=== PATIENT | male | born 1970 | race Caucasian/White ===

== ENCOUNTER 2017-07-17 01:49 | Emergency (ER) | payer BC ==
[2017-07-17] MEDS ORDERED: MORPHINE SULFATE 4 MG INJ IV ONE ×3 (02:05→05:46)
[2017-07-17] MEDS ORDERED: Zofran 4 MG/2 ML VIAL IV ONE (02:05)
--- NOTE | 2017-07-17 02:14 | ERPHSYRPT ---
- History of Present Illness Time Seen by Provider: 07/17/17 02:09 Source: patient Exam Limitations: no limitations Patient Subjective Stated Complaint: Pt reports pain in legs bilat with swelling left leg for several days. Reports that has an appt with PCP in next few days but pain has gotten unbearable. Pt reports that he has a hx of brain tumors with recent brain surgery and radiatiory therapy. Triage Nursing Assessment: Pt alert, oriented, answers questions appropriately. Pt skin flushed, warm, dry. Resps non-labored. Edema noted left lower leg. 2+ pedal pulses bilat. Pt yelling out in pain, moaning, thrashing head. Physician History: 47-year-old white male arrives with complaint of severe pain in bilateral lower extremities from the Knees down symptoms since tonight approximately one hour( patient tells the nurse for several days) Also with lower extremity edema on the left symptoms for several weeks. Patient has not otherwise been ill. Past medical history includes brain tumor with brain surgery and radiation. Patient states brain surgery 2012 states had surgery 2 weeks ago. Also history of diabetes mellitus. Cyst removed right elbow. Anemia. DVT left upper extremity. Method of Injury: other (no injury) Occurred: other (patient states pain for one hour sudden onset, ( patient tells the nurse for several days) patient with left lower extremity edema for several weeks) Quality: constant, aching Severity of Pain-Max: moderate Severity of Pain-Current: moderate Lower Extremities Pain: leg: bilateral Modifying Factors: Improves With: nothing Associated Symptoms: none, other (left lower extremity edema) Allergies/Adverse Reactions: No Known Drug Allergies Allergy (Unverified 05/22/13 11:16) Home Medications: Ibuprofen 800 mg PO TID 07/17/17 [History] Insulin Glargine,Hum.rec.anlog [Lantus] 34 unit SQ BID 07/17/17 [History] Levetiracetam [Keppra] 1,000 mg PO BID 07/17/17 [History] Metformin HCl 500 mg [Glucophage 500 MG] 500 mg PO BID 07/17/17 [History] Omeprazole Magnesium [Prilosec Otc] 20 mg PO DAILY 07/17/17 [History] Hx Tetanus, Diphtheria Vaccination/Date Given: No Hx Influenza Vaccination/Date Given: No Hx Pneumococcal Vaccination/Date Given: No Immunizations Up to Date: Yes - Review of Systems Constitutional: No Fever, No Chills Eyes: No Symptoms Ears, Nose, & Throat: No Symptoms Respiratory: No Cough, No Dyspnea Cardiac: No Chest Pain, No Edema, No Syncope Abdominal/Gastrointestinal: No Abdominal Pain, No Nausea, No Vomiting, No Diarrhea Genitourinary Symptoms: No Dysuria Musculoskeletal: Other (bilateral leg painswelling left lower extremity) Skin: No Rash Neurological: Other (patient states having the pain in his lower legs) Psychological: No Symptoms Endocrine: No Symptoms All Other Systems: Reviewed and Negative - Past Medical History Pertinent Past Medical History: Yes Neurological History: No Pertinent History, Seizures, Other ENT History: No Pertinent History Cardiac History: Hypertension Respiratory History: No Pertinent History Endocrine Medical History: No Pertinent History Musculoskeletal History: No Pertinent History GI Medical History: GERD History: No Pertinent History Psycho-Social History: No Pertinent History Male Reproductive Disorders: No Pertinent History Other Medical History: brain tumor removed in may 2013 radiation jun 2017 - Past Surgical History Past Surgical History: Yes Neuro Surgical History: Neurological Surgery Cardiac: No Pertinent History Respiratory: No Pertinent History Gastrointestinal: No Pertinent History Genitourinary: No Pertinent History Musculoskeletal: No Pertinent History Male Surgical History: No Pertinent History Other Surgical History: CYST REMOVED ON ELBOW - Social History Smoking Status: Current every day smoker Exposure to second hand smoke: No Drug Use: none Patient Lives Alone: No - Nursing Vital Signs Nursing Vital Signs: Initial Vital Signs Temperature 98.2 F 07/17/17 01:57 Pulse Rate 84 07/17/17 01:57 Respiratory Rate 16 07/17/17 01:57 Blood Pressure 159/111 07/17/17 01:57 O2 Sat by Pulse Oximetry 97 07/17/17 01:57 Pain Scale Pain Intensity 3 - Physical Exam General Appearance: moderate distress Eyes, Ears, Nose, Throat Exam: moist mucous membranes Neck Exam: non-tender, supple Cardiovascular/Respiratory Exam: chest non-tender, normal breath sounds, regular rate/rhythm, no respiratory distress Gastrointestinal/Abdominal Exam: non-tender, guarding Back Exam: normal inspection, No vertebral tenderness Hips Exam: bilateral: non-tender, normal inspection, normal range of motion, no evidence of injury Legs Exam: left leg: swelling (edema left ankle leg and foot), bilateral leg: non-tender, normal range of motion Knees Exam: bilateral knee: non-tender, normal inspection, normal range of motion, no evidence of injury Ankle Exam: left ankle: swelling (edema left ankle leg and foot), bilateral ankle: non-tender, normal inspection, normal range of motion, no evidence of injury Foot Exam: left foot: swelling (edema left ankle leg and foot), bilateral foot: non-tender, normal inspection, normal range of motion, no evidence of injury, abrasions/lacerations DTR - Lower Extremities Exam: ankle (R): 2+, ankle (L): 2+ Neuro/Tendon Exam: normal sensation, normal motor functions Mental Status Exam: alert, oriented x 3, cooperative Skin Exam: normal color, warm, dry SpO2 Interpretation: normal (97%) SpO2: 97 Oxygen Delivery: Room Air - Radiology Ultrasound Exam Venous Lower Extremity Ultrasound: Other (venous Doppler bilateral lower extremities: Positive DVT from left common femoral vein to posterior tibial vein. No DVT right leg) Ordered Tests: Active Orders 24 hr Category Date Time Status IV Insertion STAT Care 07/17/17 02:05 Active VENOUS BILATERAL EXTREMITY [US] Stat Exams 07/17/17 Taken CBC W DIFF Stat Lab 07/17/17 02:20 Completed CMP Stat Lab 07/17/17 02:20 Completed D-DIMER QUANTITATION Stat Lab 07/17/17 02:20 Completed Manual Differential NC Stat Lab 07/17/17 02:20 Completed PROTIME WITH INR Stat Lab 07/17/17 02:20 Completed PTT Stat Lab 07/17/17 02:20 Completed Urine Triage Profile Stat Lab 07/17/17 02:20 Completed Oxygen NASAL CANNULA 3 lpm RT 07/17/17 06:26 Active Medication Summary Generic Name Dose Route Start Last Admin Trade Name Freq PRN Reason Stop Dose Admin Sodium Chloride 1,000 mls @ 100 mls/hr 07/17/17 02:15 07/17/17 02:16 Sodium Chloride 0.9% 1000 Ml IV 08/16/17 02:14 100 mls/hr .Q10H CHRISTIN Administration Discontinued Medications Generic Name Dose Route Start Last Admin Trade Name Freq PRN Reason Stop Dose Admin Enoxaparin Sodium 90 mg 07/17/17 04:29 07/17/17 05:41 Enoxaparin Sodium 1 mg/kg (90 mg) 07/17/17 04:30 90 mg SQ Administration 1XONLY STA Enoxaparin Sodium Confirm 07/17/17 05:40 Enoxaparin Sodium Administered 07/17/17 05:41 Dose 120 mg SQ .STK-MED ONE Morphine Sulfate 4 mg 07/17/17 02:05 07/17/17 02:17 Morphine Sulfate 4 Mg Inj IV 07/17/17 02:06 4 mg STAT ONE Administration Morphine Sulfate Confirm 07/17/17 02:15 Morphine Sulfate 4 Mg Inj Administered 07/17/17 02:16 Dose 4 mg .ROUTE .STK-MED ONE Morphine Sulfate 4 mg 07/17/17 03:23 07/17/17 03:27 Morphine Sulfate 4 Mg Inj IV 07/17/17 03:24 4 mg STAT ONE Administration Morphine Sulfate Confirm 07/17/17 03:26 Morphine Sulfate 4 Mg Inj Administered 07/17/17 03:27 Dose 4 mg .ROUTE .STK-MED ONE Morphine Sulfate Confirm 07/17/17 05:46 Morphine Sulfate 4 Mg Inj Administered 07/17/17 05:47 Dose 4 mg .ROUTE .STK-MED ONE Morphine Sulfate 4 mg 07/17/17 05:46 07/17/17 05:49 Morphine Sulfate 4 Mg Inj IV 07/17/17 05:47 4 mg STAT ONE Administration Ondansetron HCl 4 mg 07/17/17 02:05 07/17/17 02:16 Zofran 4 Mg/2 Ml Vial IV 07/17/17 02:06 4 mg STAT ONE Administration Ondansetron HCl Confirm 07/17/17 02:15 Zofran 4 Mg/2 Ml Vial Administered 07/17/17 02:16 Dose 4 mg .ROUTE .STK-MED ONE Lab/Rad Data: Laboratory Result Diagrams 07/17/17 02:20 07/17/17 02:20 Laboratory Results 07/17/17 07/17/17 07/17/17 Range/Units 02:20 02:20 02:20 WBC (4.0-10.5) K/mm3 RBC (4.1-5.6) M/mm3 Hgb (12.5-18.0) gm/dl Hct (42-50) % MCV (78-100) fl MCH (26-32) pg MCHC (32-36) g/dl RDW (11.5-14.0) % Plt Count (150-450) K/mm3 MPV (6-9.5) fl Segmented Neutrophils (36.-66.) % Band Neutrophils (0.0-2.0) % Lymphocytes (Manual) (24-44) % Monocytes (Manual) (0.0-12.0) % Eosinophils (Manual) (0.00-3.0) % Differential Comment Platelet Estimate (NORMAL) INR 0.88 (0.8-3.0) APTT 25.2 (24.1-36.1) SECONDS D-Dimer 96255 H* (0-500) ng/mL Sodium (136-145) mEq/L Potassium (3.5-5.1) mEq/L Chloride (98-107) mEq/L Carbon Dioxide (21-32) mEq/L Anion Gap (5-15) MEQ/L BUN (9-20) mg/dL Creatinine (0.55-1.30) mg/dl Estimated GFR ML/MIN Glucose (70-110) MG/DL Calcium (8.5-10.1) mg/dL Total Bilirubin (0.2-1.0) mg/dL AST (15-37) U/L ALT (12-78) U/L Alkaline Phosphatase (46-116) U/L Serum Total Protein (6.4-8.2) gm/dL Albumin (3.4-5.0) g/dL Urine Opiates Level NEG. (NEGATIVE) Ur Methadone NEG. (NEGATIVE) Urine Barbiturates NEG. (NEGATIVE) Ur Phencyclidine (PCP) NEG. (NEGATIVE) Urine Amphetamine NEG. (NEGATIVE) U Benzodiazepine Level NEG. (NEGATIVE) Urine Cocaine NEG. (NEGATIVE) Urine Marijuana (THC) NEG. (NEGATIVE) 07/17/17 07/17/17 Range/Units 02:20 02:20 WBC 8.1 (4.0-10.5) K/mm3 RBC 4.13 (4.1-5.6) M/mm3 Hgb 12.9 (12.5-18.0) gm/dl Hct 40.2 L (42-50) % MCV 97.3 (78-100) fl MCH 31.2 (26-32) pg MCHC 32.1 (32-36) g/dl RDW 15.8 H (11.5-14.0) % Plt Count 114 L (150-450) K/mm3 MPV 8.5 (6-9.5) fl Segmented Neutrophils 70 H (36.-66.) % Band Neutrophils 1 (0.0-2.0) % Lymphocytes (Manual) 25 (24-44) % Monocytes (Manual) 3 (0.0-12.0) % Eosinophils (Manual) 1 (0.00-3.0) % Differential Comment NORMAL Platelet Estimate DECREASED (NORMAL) INR (0.8-3.0) APTT (24.1-36.1) SECONDS D-Dimer (0-500) ng/mL Sodium 144 (136-145) mEq/L Potassium 4.1 (3.5-5.1) mEq/L Chloride 110 H (98-107) mEq/L Carbon Dioxide 30.9 (21-32) mEq/L Anion Gap 6.8 (5-15) MEQ/L BUN 15 (9-20) mg/dL Creatinine 0.85 (0.55-1.30) mg/dl Estimated GFR > 60 ML/MIN Glucose 82 (70-110) MG/DL Calcium 8.5 (8.5-10.1) mg/dL Total Bilirubin 0.30 (0.2-1.0) mg/dL AST 19 (15-37) U/L ALT 43 (12-78) U/L Alkaline Phosphatase 54 (46-116) U/L Serum Total Protein 6.0 L (6.4-8.2) gm/dL Albumin 2.9 L (3.4-5.0) g/dL Urine Opiates Level (NEGATIVE) Ur Methadone (NEGATIVE) Urine Barbiturates (NEGATIVE) Ur Phencyclidine (PCP) (NEGATIVE) Urine Amphetamine (NEGATIVE) U Benzodiazepine Level (NEGATIVE) Urine Cocaine (NEGATIVE) Urine Marijuana (THC) (NEGATIVE) - Progress Progress: improved Progress Note: 07/17/17 02:19 This is a 47-year-old white male who states he has a history of a brain tumor and has had a surgery in 2012 with removal and subsequent surgery April 2017 he states he has had radiation which she has recently finished his last dose He complains of bilateral lower extremity pain he calls this nerve pain. He states his been severe since tonight he has been having lower extremity edema especially on the left symptoms for several weeks. Patient does have a well-healed scar on his head. Patient I have reviewed the patient's inspect report that shows that he received hydrocodone 7.5/325 #90 May 18, 2017 hydrocodone 7. 5/3/25 #28 May 08, 2017 oxycodone and acetaminophen 10/325 #84 on April 26, 2017 And hydrocodone 7.5/325 #28 on April 10 Patient states these are related to pain from his surgery He states he had his surgery in [place] Will go ahead and obtain CBC BMP d-dimer order venous Doppler bilateral lower extremities. Patient is given morphine and Zofran for pain. 07/17/17 04:23 Patient with a DVT extending from the left common femoral to the posterior tibial on the left leg, there are no DVTs in the right leg Patient was given morphine and IV normal saline. I contacted the hospitalist at [facility] randallia she stated that she did not feel comfortable accepting this patient she states that he had a very complex course and had actually had some seizures after his surgery while at [facility] she recommended I contact Wilfr[facility]. I initially contacted Dr. Meyer hospitalist at [facility] He recommended that the patient be discussed with Dr. Morgan neurosurgeon at [facility]. Dr. Arellano was contacted by one call he approved patient receiving Lovenox here at [facility] and they would arrange for a bed at [facility] on the PCU. Patient appears to be stable at this time vitals have been stable patient is markedly improved as far as comfort. Will order Lovenox and await bed at [facility] - Departure Time of Disposition: 06:56 Departure Disposition: Transfer ([facility] Dr Meyer) Clinical Impression: Bilateral leg pain, history of recent brain surgery, History of brain tumor, history of recent radiation therapy Left leg DVT Qualifiers: Affected thrombotic vein of extremity: unspecified vein of extremity Chronicity : acute Qualified Code(s): I82.402 - Acute embolism and thrombosis of unspecified deep veins of left lower extremity Condition: Fair Critical Care Time: No Referrals: MEGHAN PATEL [Primary Care Provider] -
[2017-07-17] MEDS ORDERED: Sodium Chloride 0.9% 1000 ML 1,000 ML IV SCH (02:15)
[2017-07-17] MEDS ORDERED: Zofran 4 MG/2 ML VIAL ONE (02:15)
[2017-07-17] MEDS ORDERED: Sodium Chloride 0.9% 1000 ML 1,000 ML ONE (02:15)
[2017-07-17] MEDS ORDERED: MORPHINE SULFATE 4 MG INJ ONE ×3 (02:15→05:46)
[2017-07-17 02:24] LABS: Mean Cell Volume 97.3 fl (78-100); Mean Corpuscular Hemoglobin 31.2 pg (26-32); Mean Platelet Volume 8.5 fl (6-9.5); Platelet Count 114 K/mm3 (150-450); Red Blood Count 4.13 M/mm3 (4.1-5.6); Red Cell Distribution Width 15.8 % (11.5-14.0); White Blood Count 8.1 K/mm3 (4.0-10.5)
[2017-07-17 02:44] LABS: ALBUMIN 2.9 g/dL (3.4-5.0); ALKALINE PHOSPHATASE 54 U/L (46-116); ANION GAP 6.8 MEQ/L (5-15); BLOOD UREA NITROGEN 15 mg/dL (9-20); CHLORIDE 110 mEq/L (98-107); Carbon Dioxide 30.9 mEq/L (21-32); Glucose 82 MG/DL (70-110); Potassium 4.1 mEq/L (3.5-5.1); SGOT/AST 19 U/L (15-37); SGPT/ALT 43 U/L (12-78); SODIUM 144 mEq/L (136-145)
[2017-07-17 03:40] LABS: INR 0.88 (0.8-3.0); PROTIME 9.8 SECONDS (8.83-12.87)
[2017-07-17 03:41] LABS: PTT 25.2 SECONDS (24.1-36.1)
[2017-07-17 04:18] LABS: BAND 1 % (0.0-2.0); Eosinophil 1 % (0.00-3.0); Total Cells Counted 100
[2017-07-17 04:19] LABS: Platelet Estimate DECREASED (NORMAL)
[2017-07-17] MEDS ORDERED: ENOXAPARIN SODIUM SQ STA (04:29)
[2017-07-17] MEDS ORDERED: ENOXAPARIN SODIUM SQ ONE (05:40)
[2017-07-17 06:56] VITALS: O2SAT 97
[2017-07-17 06:58] VITALS: BP 150/77; PULSE 76
--- NOTE | 2017-07-17 08:53 | XRAY ---
Indication: Bilateral leg pain. Two-dimensional sonogram and color Doppler imaging of the major venous vessels of the left and right leg was performed. Comparison: None Left leg demonstrates occluding thrombus throughout the superficial femoral, popliteal, and posterior tibial veins. No thrombus in the common femoral or greater saphenous veins. There is no thrombus seen in the examined deep venous vessels of the right leg including greater saphenous vein. Veins demonstrate normal compressibility. Venous waveforms are normal with and without augmentation. Impression: 1. Extensive left leg occluding DVT. 2. Right leg negative for DVT. Comment: Preliminary report was given.
== END 2017-07-17 08:37 | disposition short-term general hospital (02) ==
LOC: ED 01:49
DX: I82.402 Acute embolism and thrombosis of unspecified deep veins of left lower extremity (principal); M79.605 Pain in left leg; M79.604 Pain in right leg; Z92.3 Personal history of irradiation
CPT/HCPCS: 36000; 36415; 80053; 80307; 85025; 85379; 85610; 85730; 93970; 96360; 96361; 96372; 96374; 96375; 96376; 99285; J1650; J2270; J2405

== ENCOUNTER 2017-12-13 20:12 | Emergency (ER) | payer OTHER ==
--- NOTE | 2017-12-13 21:09 | ERPHSYRPT ---
- History of Present Illness Time Seen by Provider: 12/13/17 20:24 Source: patient Exam Limitations: no limitations Patient Subjective Stated Complaint: Hypertension, "I don't feel right" and left arm tingling. Triage Nursing Assessment: Pt presents to the ED with complaints of hypertension , onset today when he woke up. Pt states he woke up "not feeling well" and thought his FSBS was low, but states his FSBS has been fine today. Pt states he was evaluated by EMS and told his BP was 163/103. No distress noted. No chest pain noted. Skin PWD. Physician History: 47 y/o male with history of brain tumor, HTN, DVT and DM comes to the ER with complaints of left hand tingling and pulsation of his head that started 1 hour prior to arrival. This morning, patient woke up with a headache but drank coffee and the pain went away. Pt states that his BP was elevated prior to arrival but in the ER BP was 157/95. Pt had a tumor removed in June and had RT in July. Pt denies any fever, chills, chest pain, shortness of breath, palpitations, blurry vision or headache. Timing/Duration: today Activities at Onset: none Quality: throbbing Modifying Factors: Improves With: nothing Nitro Today/Relief: no nitro taken today Aspirin Treatment Today: no aspirin today Associated Symptoms: denies symptoms Prior Chest Pain/Cardiac Workup: no prior chest pain Allergies/Adverse Reactions: No Known Drug Allergies Allergy (Verified 12/13/17 20:33) Home Medications: Ibuprofen 800 mg PO TID 07/17/17 [History] Insulin Glargine,Hum.rec.anlog [Lantus] 34 unit SQ BID 07/17/17 [History] Levetiracetam [Keppra] 1,000 mg PO BID 07/17/17 [History] Metformin HCl 500 mg [Glucophage 500 MG] 500 mg PO BID 07/17/17 [History] Apixaban [Eliquis 5 mg Tablet] 5 mg PO DAILY 12/13/17 [History] Dexamethasone 4 mg [Decadron 4 MG] 4 mg PO BID 12/13/17 [History] Hydrochlorothiazide 25 mg [hydroDIURIL 25 MG] 25 mg PO DAILY 12/13/17 [ History] Multivitamin [Multivitamins] 1 each PO DAILY 12/13/17 [History] Potassium Chloride 10 Meq Tab* [Klor Con 10 MEQ] 10 meq PO DAILY 12/13/17 [ History] Pravastatin Sodium 20 mg PO DAILY 12/13/17 [History] Hx Tetanus, Diphtheria Vaccination/Date Given: Yes Hx Influenza Vaccination/Date Given: Yes Hx Pneumococcal Vaccination/Date Given: No Immunizations Up to Date: Yes - Review of Systems Constitutional: No Fever, No Chills Eyes: No Symptoms Ears, Nose, & Throat: No Symptoms Respiratory: No Cough, No Dyspnea Cardiac: Other (numbness), No Chest Pain, No Edema, No Syncope Abdominal/Gastrointestinal: No Abdominal Pain, No Nausea, No Vomiting, No Diarrhea Genitourinary Symptoms: No Dysuria Musculoskeletal: No Back Pain, No Neck Pain Skin: No Rash Neurological: Parasthesia, No Dizziness, No Focal Weakness, No Headache, No Sensory Changes Psychological: No Symptoms Endocrine: No Symptoms All Other Systems: Reviewed and Negative - Past Medical History Pertinent Past Medical History: Yes Neurological History: No Pertinent History, Seizures, Other ENT History: No Pertinent History Cardiac History: Hypertension Respiratory History: No Pertinent History Endocrine Medical History: No Pertinent History Musculoskeletal History: No Pertinent History GI Medical History: GERD History: No Pertinent History Psycho-Social History: No Pertinent History Male Reproductive Disorders: No Pertinent History Other Medical History: brain tumor removed in may 2013 radiation jun 2017 - Past Surgical History Past Surgical History: Yes Neuro Surgical History: Neurological Surgery Cardiac: No Pertinent History Respiratory: No Pertinent History Gastrointestinal: No Pertinent History Genitourinary: No Pertinent History Musculoskeletal: No Pertinent History Male Surgical History: No Pertinent History Other Surgical History: CYST REMOVED ON ELBOW - Social History Smoking Status: Current every day smoker How long have you smoked: 30 years Exposure to second hand smoke: Yes Drug Use: none Patient Lives Alone: No - Nursing Vital Signs Nursing Vital Signs: Initial Vital Signs Temperature 97.6 F 12/13/17 20:22 Pulse Rate 93 H 12/13/17 20:22 Respiratory Rate 19 12/13/17 20:22 Blood Pressure 153/101 12/13/17 20:22 O2 Sat by Pulse Oximetry 98 12/13/17 20:22 Pain Scale Pain Intensity 0 - Physical Exam General Appearance: no apparent distress, alert Eye Exam: PERRL/EOMI, eyes nml inspection Ears, Nose, Throat Exam: normal ENT inspection, moist mucous membranes Neck Exam: normal inspection, non-tender, supple Respiratory Exam: normal breath sounds, lungs clear, No respiratory distress Cardiovascular Exam: regular rate/rhythm, normal heart sounds, No edema Gastrointestinal/Abdomen Exam: soft, No tenderness, No mass Back Exam: normal inspection, No CVA tenderness, No vertebral tenderness Extremity Exam: normal inspection, normal range of motion Neurologic Exam: alert, oriented x 3, cooperative, normal mood/affect, nml cerebellar function, sensation nml, No motor deficits Skin Exam: normal color, warm, dry Lymphatic Exam: No adenopathy SpO2: 98 Oxygen Delivery: Room Air - Course Nursing assessment & vital signs reviewed: Yes EKG Interpreted by Me: Other (flat T wave in AVL) Ordered Tests: Active Orders 24 hr Category Date Time Status Certified Scrub Tech STAT Care 12/13/17 20:44 Active EKG-ER Only STAT Care 12/13/17 20:44 Active IV Insertion STAT Care 12/13/17 20:44 Active CHEST 1 VIEW (PORTABLE) Stat Exams 12/13/17 20:44 Taken HEAD WITHOUT CONTRAST [CT] Stat Exams 12/13/17 20:45 Taken CBC W DIFF Stat Lab 12/13/17 21:00 Completed CK-Creatinine Phosphokinase Stat Lab 12/13/17 21:00 Completed CMP Stat Lab 12/13/17 21:00 Completed PROTIME WITH INR Stat Lab 12/13/17 21:00 Completed PTT Stat Lab 12/13/17 21:00 Completed TROPONIN Q3H Lab 12/13/17 21:00 Completed TROPONIN Q3H Lab 12/13/17 23:45 Ordered TROPONIN Q3H Lab 12/14/17 02:45 Ordered TROPONIN Q3H Lab 12/14/17 05:45 Ordered TROPONIN Q3H Lab 12/14/17 08:45 Ordered Lab/Rad Data: Laboratory Result Diagrams 12/13/17 21:00 12/13/17 21:00 Laboratory Results 12/13/17 12/13/17 12/13/17 Range/Units 21:00 21:00 21:00 WBC (4.0-10.5) K/mm3 RBC (4.1-5.6) M/mm3 Hgb (12.5-18.0) gm/dl Hct (42-50) % MCV (78-100) fl MCH (26-32) pg MCHC (32-36) g/dl RDW (11.5-14.0) % Plt Count (150-450) K/mm3 MPV (6-9.5) fl Gran % (36.0-66.0) % Eos # (Auto) (0-0.5) Absolute Lymphs (auto) (1.0-4.6) Absolute Monos (auto) (0.0-1.3) Lymphocytes % (24.0-44.0) % Monocytes % (0.0-12.0) % Eosinophils % (0.00-5.0) % Basophils % (0.0-0.4) % Absolute Granulocytes (1.4-6.9) Basophils # (0-0.4) PT 11.9 (8.83-12.87) SECONDS INR 1.07 (0.8-3.0) APTT 32.5 (24.1-36.1) SECONDS Sodium 138 (137-145) mmol/L Potassium 3.8 (3.5-5.1) mmol/L Chloride 102 (98-107) mmol/L Carbon Dioxide 24 (22-30) mmol/L Anion Gap 15.4 H (5-15) MEQ/L BUN 17 (9-20) mg/dL Creatinine 0.80 (0.66-1.25) mg/dL Estimated GFR > 60.0 ML/MIN Glucose 125 H (74-106) mg/dL Calcium 9.9 (8.4-10.2) mg/dL Total Bilirubin 0.40 (0.2-1.3) mg/dL AST 26 (17-59) U/L ALT 37 (0-50) U/L Alkaline Phosphatase 61 (38-126) U/L Creatine Kinase 57 (55-170) U/L Troponin I < 0.012 (0.000-0.034) ng/mL Serum Total Protein 6.5 (6.3-8.2) g/dL Albumin 4.2 (3.5-5.0) g/dL 12/13/17 Range/Units 21:00 WBC 11.6 H (4.0-10.5) K/mm3 RBC 4.52 (4.1-5.6) M/mm3 Hgb 14.1 (12.5-18.0) gm/dl Hct 41.9 L (42-50) % MCV 92.7 (78-100) fl MCH 31.2 (26-32) pg MCHC 33.7 (32-36) g/dl RDW 13.9 (11.5-14.0) % Plt Count 305 (150-450) K/mm3 MPV 8.9 (6-9.5) fl Gran % 70.7 H (36.0-66.0) % Eos # (Auto) 0.04 (0-0.5) Absolute Lymphs (auto) 2.27 (1.0-4.6) Absolute Monos (auto) 1.07 (0.0-1.3) Lymphocytes % 19.6 L (24.0-44.0) % Monocytes % 9.2 (0.0-12.0) % Eosinophils % 0.3 (0.00-5.0) % Basophils % 0.2 (0.0-0.4) % Absolute Granulocytes 8.20 H (1.4-6.9) Basophils # 0.02 (0-0.4) PT (8.83-12.87) SECONDS INR (0.8-3.0) APTT (24.1-36.1) SECONDS Sodium (137-145) mmol/L Potassium (3.5-5.1) mmol/L Chloride (98-107) mmol/L Carbon Dioxide (22-30) mmol/L Anion Gap (5-15) MEQ/L BUN (9-20) mg/dL Creatinine (0.66-1.25) mg/dL Estimated GFR ML/MIN Glucose (74-106) mg/dL Calcium (8.4-10.2) mg/dL Total Bilirubin (0.2-1.3) mg/dL AST (17-59) U/L ALT (0-50) U/L Alkaline Phosphatase (38-126) U/L Creatine Kinase (55-170) U/L Troponin I (0.000-0.034) ng/mL Serum Total Protein (6.3-8.2) g/dL Albumin (3.5-5.0) g/dL - Progress Progress: unchanged Progress Note: 12/13/17 21:54 The patient reports that he feels pressure in his head when he stands up. Otherwise, patient is resting comfortably. BP has improved to 118/76. The cardiac workup is within normal limits. The CT scan head does not show any acute findings but an MRI brain would be more specific to look for progression of tumor. I will give a call to his oncologist, Dr Carey for further recommendations. 12/13/17 22:[address] Catherine the covering oncologist, who mentions that someone from the office will give him a call in the morning. - Departure Time of Disposition: 22:01 Departure Disposition: Home Clinical Impression: Brain tumor, Tingling Headache Qualifiers: Headache type: unspecified Headache chronicity pattern: acute headache Intractability: not intractable Qualified Code(s): R51 - Headache Condition: Stable Critical Care Time: No Referrals: MEGHAN PATEL [Primary Care Provider] - Instructions: Brain Tumor, Adult (DC), Paresthesias (DC), Headache, Adult (DC) Additional Instructions: You will receive a call tomorrow from Dr. Carey's office for further recommendations. If no call by noon, then call the office.
[2017-12-13 21:10] LABS: BASOPHIL % 0.2 % (0.0-0.4); Basophil (Absolute #) 0.02 (0-0.4); Eosinophil % 0.3 % (0.00-5.0); Eosinophil (Absolute #) 0.04 (0-0.5); Granulocytes % 70.7 % (36.0-66.0); Hematocrit 41.9 % (42-50); Hemoglobin 14.1 gm/dl (12.5-18.0); Lymphocyte (Absolute #) 2.27 (1.0-4.6); Lymphocytes % 19.6 % (24.0-44.0); Mean Cell Volume 92.7 fl (78-100); Mean Corpuscular Hemoglobin 31.2 pg (26-32); Mean Corpuscular Hgb Concent. 33.7 g/dl (32-36); Mean Platelet Volume 8.9 fl (6-9.5); Monocyte (Absolute #) 1.07 (0.0-1.3); Monocytes % 9.2 % (0.0-12.0); Platelet Count 305 K/mm3 (150-450); Red Blood Count 4.52 M/mm3 (4.1-5.6); Red Cell Distribution Width 13.9 % (11.5-14.0); White Blood Count 11.6 K/mm3 (4.0-10.5)
[2017-12-13 21:21] LABS: INR 1.07 (0.8-3.0)
[2017-12-13 21:24] LABS: PTT 32.5 SECONDS (24.1-36.1)
[2017-12-13 21:27] LABS: ALBUMIN 4.2 g/dL (3.5-5.0); ALKALINE PHOSPHATASE 61 U/L (38-126); ANION GAP 15.4 MEQ/L (5-15); BLOOD UREA NITROGEN 17 mg/dL (9-20); CHLORIDE 102 mmol/L (98-107); CK-Creatinine Phosphokinase 57 U/L (55-170); Calcium 9.9 mg/dL (8.4-10.2); Carbon Dioxide 24 mmol/L (22-30); Glucose 125 mg/dL (74-106); Potassium 3.8 mmol/L (3.5-5.1); SGOT/AST 26 U/L (17-59); SGPT/ALT 37 U/L (0-50); SODIUM 138 mmol/L (137-145); Total Protein 6.5 g/dL (6.3-8.2)
[2017-12-13 21:56] VITALS: O2SAT 98
[2017-12-13 22:14] VITALS: BP 130/81; PULSE 83
--- NOTE | 2017-12-14 08:47 | XRAY ---
Indication: Numbness. Head pressure. Comparison: January 15, 2014. Portable chest remains clear. Heart and mediastinal structures within normal limits. Bony thorax intact with minimal degenerative changes. Impression: Stable nonacute chest.
--- NOTE | 2017-12-14 08:51 | XRAY ---
Indication: Numbness and head pressure. History of brain hemangiopericytoma. Multiple contiguous axial images obtained through the head without contrast. Comparison: MRI brain April 06, 2017. Again left frontal craniotomy. Previous enhancing mass near the left vertex not seen on this noncontrast exam. No acute intracranial hemorrhage, hydrocephalus, or mass effect. Fourth ventricle is midline. Gay-white matter differentiation preserved. Remaining bony calvarium intact. Visualized paranasal sinuses and mastoid air cells are clear. Impression: 1. Again left frontal craniotomy near the vertex. Previous left vertex MRI enhancing mass not obvious on this noncontrast exam. Has there been interval craniotomy? Contrast exam may yield further information if there remains further clinical concern. 2. No acute intracranial abnormalities. CTDI 70.21
== END 2017-12-13 22:14 | disposition home or self-care (01) ==
LOC: ED 20:12
DX: R51 Headache (principal); R20.2 Paresthesia of skin; Z86.03 Personal history of neoplasm of uncertain behavior; Z79.899 Other long term (current) drug therapy
CPT/HCPCS: 36000; 36415; 70450; 71045; 80053; 82550; 84484; 85025; 85610; 85730; 93005; 93041; 99283; 99284

== ENCOUNTER 2018-06-13 16:31 | Emergency (ER) | payer OTHER ==
--- NOTE | 2018-06-13 16:47 | ERPHSYRPT ---
- History of Present Illness Time Seen by Provider: 06/13/18 16:47 Source: patient, family Exam Limitations: no limitations Physician History: 48 y/o white male with known multiple brain surgeries for removal of benign tumors. he has also had intermittent right side weakness for a year or more. 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 sx include right side numbness(this is new and it is both upper and lower ext) and weakness. sx have completely resolved. he currently states he is at his normal baseline. pt is off his eliquis and has been for several days in anticipation of an eye surgery that was cancelled yesterday. Timing/Duration: today Severity: mild (now resolved) Character of Deficits: altered sensation, RLE, RUE Baseline/Normal Cognition: alert oriented x 3 Current Cognition: alert oriented x 3 Baseline Gait: walks w/o assistance Associated Symptoms: weakness, numbness/tingling in legs/feet (new but resolved completely), paresthesia (new but resolved completely), No confusion, No fatigue Allergies/Adverse Reactions: No Known Drug Allergies Allergy (Verified 06/13/18 17:02) Home Medications: Ibuprofen 800 mg PO TID 07/17/17 [History] Insulin Glargine,Hum.rec.anlog [Lantus] 34 unit SQ BID 07/17/17 [History] Levetiracetam [Keppra] 1,000 mg PO BID 07/17/17 [History] Metformin HCl 500 mg [Glucophage 500 MG] 500 mg PO BID 07/17/17 [History] Apixaban [Eliquis 5 mg Tablet] 5 mg PO DAILY 12/13/17 [History] Dexamethasone 4 mg [Decadron 4 MG] 4 mg PO BID 12/13/17 [History] Hydrochlorothiazide 25 mg [hydroDIURIL 25 MG] 25 mg PO DAILY 12/13/17 [ History] Multivitamin [Multivitamins] 1 each PO DAILY 12/13/17 [History] Potassium Chloride 10 Meq Tab* [Klor Con 10 MEQ] 10 meq PO DAILY 12/13/17 [ History] Pravastatin Sodium 20 mg PO DAILY 12/13/17 [History] Hx Tetanus, Diphtheria Vaccination/Date Given: Yes Hx Influenza Vaccination/Date Given: Yes Hx Pneumococcal Vaccination/Date Given: No - Review of Systems Constitutional: No Symptoms, No Fever Eyes: No Symptoms, No Discharge, No Eye Pain, No Double Vision Ears, Nose, & Throat: No Symptoms, No Ear Pain Respiratory: No Symptoms, No Cough, No Dyspnea, No Stridor, No Wheezing Cardiac: No Symptoms, No Chest Pain, No Palpitations, No Syncope Abdominal/Gastrointestinal: No Symptoms, No Abdominal Pain, No Nausea, No Vomiting, No Diarrhea Genitourinary Symptoms: No Symptoms, No Dysuria, No Hematuria Musculoskeletal: No Symptoms, No Back Pain, No Neck Pain, No Deformity, No Fall , No Injury Skin: No Symptoms Neurological: Parasthesia (twice today. most recent sx right side began at 1430 and completely resolved by 1500) Psychological: No Symptoms Hematologic/Lymphatic: No Symptoms Immunological/Allergic: No Symptoms All Other Systems: Reviewed and Negative - Past Medical History Pertinent Past Medical History: Yes Neurological History: Migraines, Seizures ENT History: No Pertinent History Cardiac History: High Cholesterol Respiratory History: Bronchitis Endocrine Medical History: Diabetes Type II Musculoskeletal History: No Pertinent History GI Medical History: GERD History: No Pertinent History Psycho-Social History: No Pertinent History Male Reproductive Disorders: No Pertinent History Other Medical History: Brain Cancer (dx approx 4 years ago) - Past Surgical History Past Surgical History: Yes Neuro Surgical History: Neurological Surgery Cardiac: No Pertinent History Respiratory: No Pertinent History Gastrointestinal: No Pertinent History Genitourinary: No Pertinent History Musculoskeletal: No Pertinent History Male Surgical History: No Pertinent History Other Surgical History: CYST REMOVED ON ELBOW - Social History Smoking Status: Current every day smoker How long have you smoked: 30 years Exposure to second hand smoke: Yes Drug Use: none Patient Lives Alone: No - Nursing Vital Signs Nursing Vital Signs: Initial Vital Signs Temperature 98.8 F 06/13/18 16:51 Pulse Rate 71 06/13/18 16:51 Respiratory Rate 18 06/13/18 16:51 Blood Pressure 166/99 06/13/18 16:51 O2 Sat by Pulse Oximetry 96 06/13/18 16:51 Pain Scale Pain Intensity 0 - [place] Coma Scale Best Eye Response (Pernell): (4) open spontaneously Best Verbal Response (Al[place]): (5) oriented Best Motor Response ([place]): (6) obeys commands Pernell Total: 15 - Physical Exam General Appearance: no apparent distress, alert Eye Exam: bilateral eye: normal inspection, PERRL, EOMI Ears, Nose, Throat Exam: normal ENT inspection, moist mucous membranes Neck Exam: normal inspection, non-tender, supple, full range of motion Respiratory: normal breath sounds, lungs clear, airway intact, No chest tenderness, No respiratory distress, No accessory muscle use, No rhonchi, No wheezing, No stridor Cardiovascular: regular rate/rhythm, normal heart sounds, normal peripheral pulses Gastrointestinal: soft, normal bowel sounds, No tenderness, No guarding, No rebound Rectal Exam: not done Back Exam: normal inspection, normal range of motion, vertebral tenderness, No CVA tenderness Extremity Exam: normal inspection, normal range of motion, pelvis stable Mental Status: alert, oriented x 3, cooperative placement secretary Exam: normal hearing, normal speech, PERRL, tongue midline, No facial asymmetry, No facial droop, No facial paresthesias, No facial weakness, No gaze palsy, No hearing deficit (R), No hearing deficit (L), No tongue deviation to R , No tongue deviation to L Coordination/Gait: normal finger to nose, normal gait, normal cerebellar function Motor/Sensory: no motor deficit, no sensory deficit, no pronator drift Skin Exam: normal color, warm, dry SpO2 Interpretation: normal Oxygen Delivery: Room Air - Course Nursing assessment & vital signs reviewed: Yes EKG Interpreted by Me: RATE (73), NORMAL AXIS, NORMAL INTERVALS, NORMAL QRS, NORMAL ST-T Ordered Tests: Active Orders 24 hr Category Date Time Status EKG-ER Only STAT Care 06/13/18 17:23 Active HEAD WITHOUT CONTRAST [CT] Stat Exams 06/13/18 17:18 Taken Lab/Rad Data: ct head- no acute process - Progress Progress: unchanged, re-examined Counseled pt/family regarding: diagnosis, need for follow-up, rad results - Departure Time of Disposition: 18:01 Departure Disposition: Home Clinical Impression: Transient ischemic attack Condition: Stable Critical Care Time: No Referrals: MEGHAN PATEL [Primary Care Provider] - Additional Instructions: restart your Eliquis as prescribed. 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
[2018-06-13 17:03] VITALS: PULSE 71; O2SAT 96
[2018-06-13 18:25] VITALS: BP 126/86
--- NOTE | 2018-06-14 08:43 | XRAY ---
Indication: TIA. Multiple contiguous axial images obtained through the head without contrast. Comparison: December 13, 2017. Stable high left frontal craniotomy and cerebellum vermis atrophy. No acute intracranial hemorrhage, abnormal extra-axial fluid collection, or mass effect. Fourth ventricle is midline without hydrocephalus. Gay-white matter differentiation maintained. Remaining bony calvarium intact. Visualized paranasal sinuses and mastoid air cells are clear. Impression: 1. Stable left frontal craniotomy and cerebellar vermis atrophy. 2. No new or acute intracranial abnormalities. CTDI 70.87
== END 2018-06-13 18:34 | disposition home or self-care (01) ==
LOC: ED 16:31
DX: G45.9 Transient cerebral ischemic attack, unspecified (principal); Z86.011 Personal history of benign neoplasm of the brain; Z79.899 Other long term (current) drug therapy; E11.9 Type 2 diabetes mellitus without complications; Z79.84 Long term (current) use of oral hypoglycemic drugs
CPT/HCPCS: 70450; 93005; 99283

== ENCOUNTER 2018-10-28 13:37 | Emergency (ER) | payer OTHER | END 2018-10-28 13:59 | disposition left against medical advice (07) | LOC: ED 13:37 | DX: Z76.0 Encounter for issue of repeat prescription (principal) | CPT/HCPCS: 99281; G0463 ==

== ENCOUNTER 2019-05-12 10:18 | Emergency (ER) | payer OTHER ==
--- NOTE | 2019-05-12 11:17 | ERPHSYRPT ---
- History of Present Illness Time Seen by Provider: 05/12/19 11:17 Source: patient Exam Limitations: no limitations Patient Subjective Stated Complaint: pt had mass removed to rt hip on 02/18/19, pt stated that he was sent home from hospital 04/11, pt states that he has home health come into home to care for wound, patient stated that he was on wound vac for 1 day, wound vac is off, wound has purlent drainage noted to wound Triage Nursing Assessment: pt brought into ER via wheelchair, unable to ambulate on own, vitals wnl, afibral, lung sounds clear, pulses normal, positive bowel sounds in all 4 quads, BM 05/12, wound to rt hip, purlent drainage noted Physician History: 49 y/o diabetic white male with h/o excision of tumor right hip presents with increasing pain, wound tunneling and fibrinous exudate present in open wound. pt completed oral antibx 2 days ago. wound vac removed by home healthcare one week ago. they told pt wound vac not helping at this point. according to pt, unable to get in touch with dr. negrete, orthopedic surgeon. home healthcare nurses want different wound care orders. pt does not want to see dr. negrete anymore. Timing/Duration: week(s) (1) Severity: mild Modifying Factors: Improves With: movement Associated Symptoms: denies symptoms, No nausea, No vomiting, No abdominal pain Allergies/Adverse Reactions: No Known Drug Allergies Allergy (Verified 05/12/19 10:50) Home Medications: Levetiracetam [Keppra] 500 mg PO BID 07/17/17 [History] Metformin HCl 500 mg [Glucophage 500 MG] 1,000 mg PO BID 07/17/17 [History ] Dexamethasone 4 mg [Decadron 4 MG] 0.5 mg PO DAILY 12/13/17 [History] Multivitamin [Multivitamins] 1 each PO DAILY 12/13/17 [History] Aspirin EC 81 mg [Ecotrin 81 mg] 81 mg PO DAILY 05/12/19 [History] Duloxetine HCl 60 mg PO DAILY 05/12/19 [History] Omeprazole 20 mg PO DAILY 05/12/19 [History] Oxycodone HCl [Oxycontin] 30 mg PO BID 05/12/19 [History] Oxycodone HCl/Acetaminophen [Percocet 7.5-325 mg Tablet] 1 each PO Q6H 05/12/19 [History] Pregabalin [Lyrica 100Mg] 100 mg PO DAILY 05/12/19 [History] Tamsulosin HCl 0.4 mg [Flomax 0.4 MG] 0.4 mg PO BID 05/12/19 [History] Trazodone HCl 50 mg [Desyrel 50 mg] 150 mg PO DAILY 05/12/19 [History] Hx Tetanus, Diphtheria Vaccination/Date Given: Yes Hx Influenza Vaccination/Date Given: Yes Hx Pneumococcal Vaccination/Date Given: No - Review of Systems Constitutional: No Symptoms Eyes: No Symptoms Ears, Nose, & Throat: No Symptoms Respiratory: No Symptoms Cardiac: No Symptoms Abdominal/Gastrointestinal: No Symptoms Genitourinary Symptoms: No Symptoms Musculoskeletal: No Symptoms Skin: Other (open right hip wound) Neurological: No Symptoms Psychological: No Symptoms Endocrine: No Symptoms Hematologic/Lymphatic: No Symptoms Immunological/Allergic: No Symptoms All Other Systems: Reviewed and Negative - Past Medical History Pertinent Past Medical History: Yes Neurological History: Migraines, Seizures ENT History: No Pertinent History Cardiac History: High Cholesterol Respiratory History: Bronchitis Endocrine Medical History: Diabetes Type II Musculoskeletal History: No Pertinent History GI Medical History: GERD History: No Pertinent History Psycho-Social History: No Pertinent History Male Reproductive Disorders: No Pertinent History Other Medical History: Brain Cancer (dx approx 4 years ago) - Past Surgical History Past Surgical History: Yes Neuro Surgical History: Neurological Surgery Cardiac: No Pertinent History Respiratory: No Pertinent History Gastrointestinal: No Pertinent History Genitourinary: No Pertinent History Musculoskeletal: No Pertinent History, Other Male Surgical History: No Pertinent History Other Surgical History: CYST REMOVED ON ELBOW. mass removed from rt hip - Social History Smoking Status: Current every day smoker How long have you smoked: 40 years Exposure to second hand smoke: Yes Drug Use: none Patient Lives Alone: No - Nursing Vital Signs Nursing Vital Signs: Initial Vital Signs Temperature 97.9 F 05/12/19 10:30 Pulse Rate 91 H 05/12/19 10:30 Respiratory Rate 18 05/12/19 10:30 Blood Pressure 144/76 05/12/19 10:30 O2 Sat by Pulse Oximetry 99 05/12/19 10:30 Pain Scale Pain Intensity 8 - Physical Exam General Appearance: no apparent distress, alert, anxiety Eye Exam: PERRL/EOMI, eyes nml inspection Ears, Nose, Throat Exam: normal ENT inspection, moist mucous membranes Neck Exam: normal inspection, non-tender, supple, full range of motion Respiratory Exam: normal breath sounds, lungs clear, airway intact, No chest tenderness, No respiratory distress Cardiovascular Exam: regular rate/rhythm, normal heart sounds, normal peripheral pulses Gastrointestinal/Abdomen Exam: soft, normal bowel sounds Back Exam: normal inspection, normal range of motion, No CVA tenderness, No vertebral tenderness Extremity Exam: normal inspection, normal range of motion, pelvis stable Neurologic Exam: alert, oriented x 3, cooperative, satellite tv technician II-XII nml as tested Skin Exam: other (open right hip wound without odor but fibrinous exudate and yellowish drainage. ) Lymphatic Exam: No adenopathy SpO2 Interpretation: normal SpO2: 99 O2 Delivery: Room Air Ordered Tests: Active Orders 24 hr Category Date Time Status IV Insertion STAT Care 05/12/19 11:18 Active BLOOD CULTURE Stat Lab 05/12/19 11:42 Received CBC W DIFF Stat Lab 05/12/19 11:30 Completed CMP Stat Lab 05/12/19 11:30 Completed CULTURE,WOUND Stat Lab 05/12/19 12:00 Received Lactic Acid Stat Lab 05/12/19 11:37 Results Medication Summary Generic Name Dose Route Start Last Admin Trade Name Freq PRN Reason Stop Dose Admin Sodium Chloride 1,000 mls @ 50 mls/hr 05/12/19 11:30 05/12/19 11:31 Sodium Chloride 0.9% 1000 Ml IV 06/11/19 11:29 50 mls/hr .Q20H CHRISTIN Administration Ampicillin Sodium/Sulbactam Sodium 3 gm in 100 mls @ 200 mls/hr 05/12/19 12: 37 Unasyn 3gm / Nacl 100ml IV 05/12/19 13:06 STAT STA Discontinued Medications Generic Name Dose Route Start Last Admin Trade Name Freq PRN Reason Stop Dose Admin Hydromorphone HCl 1 mg 05/12/19 11:21 05/12/19 11:31 Hydromorphone 1 Mg/Ml Ampule IV 05/12/19 11:22 1 mg STAT ONE Administration Hydromorphone HCl Confirm 05/12/19 11:26 Hydromorphone 1 Mg/Ml Ampule Administered 05/12/19 11:27 Dose 1 mg .ROUTE .STK-MED ONE Ondansetron HCl 4 mg 05/12/19 11:18 05/12/19 11:31 Zofran 4 Mg/2 Ml Vial IV 05/12/19 11:19 4 mg STAT ONE Administration Ondansetron HCl Confirm 05/12/19 11:25 Zofran 4 Mg/2 Ml Vial Administered 05/12/19 11:26 Dose 4 mg .ROUTE .[facility]-MED ONE Lab/Rad Data: Laboratory Result Diagrams 05/12/19 11:30 05/12/19 11:30 Laboratory Results 05/12/19 05/12/19 05/12/19 Range/Units 11:37 11:30 11:30 WBC 12.2 H (4.0-10.5) K/mm3 RBC 4.35 (4.1-5.6) M/mm3 Hgb 11.4 L (12.5-18.0) gm/dl Hct 36.8 L (42-50) % MCV 84.6 (78-100) fl MCH 26.2 (26-32) pg MCHC 31.0 L (32-36) g/dl RDW 17.1 H (11.5-14.0) % Plt Count 592 H (150-450) K/mm3 MPV 8.1 (6-9.5) fl Gran % 72.5 H (36.0-66.0) % Eos # (Auto) 0.71 H (0-0.5) Absolute Lymphs (auto) 1.47 (1.0-4.6) Absolute Monos (auto) 1.09 (0.0-1.3) Lymphocytes % 12.1 L (24.0-44.0) % Monocytes % 8.9 (0.0-12.0) % Eosinophils % 5.8 H (0.00-5.0) % Basophils % 0.7 (0.0-0.4) % Absolute Granulocytes 8.83 H (1.4-6.9) Basophils # 0.09 (0-0.4) Sodium 140 (137-145) mmol/L Potassium 3.7 (3.5-5.1) mmol/L Chloride 101 (98-107) mmol/L Carbon Dioxide 28 (22-30) mmol/L Anion Gap 14.0 (5-15) MEQ/L BUN 12 (9-20) mg/dL Creatinine 0.71 (0.66-1.25) mg/dL Estimated GFR > 60.0 ML/MIN Glucose 116 H (74-106) mg/dL Lactic Acid 2.2 H (0.4-2.0) Calcium 10.2 (8.4-10.2) mg/dL Total Bilirubin 0.30 (0.2-1.3) mg/dL AST 17 (17-59) U/L ALT 16 (0-50) U/L Alkaline Phosphatase 87 (38-126) U/L Serum Total Protein 7.6 (6.3-8.2) g/dL Albumin 4.0 (3.5-5.0) g/dL - Progress Progress: unchanged, pain not gone completely, re-examined Progress Note: 05/12/19 12:33 Contacted [facility]. We were informed if pt does not wish to have further tx from dr. negrete, we should find another wound care provider since no one else will tx pt there. we then called [facility] wound care clinic. They will see pt in the wound care clinic on Sunday05/14/19 at noon. Counseled pt/family regarding: lab results, diagnosis, need for follow-up - Departure Departure Disposition: Home Clinical Impression: Wound infection after surgery Condition: Stable Critical Care Time: No Referrals: MEGHAN PATEL [Primary Care Provider] - Additional Instructions: continue dressing care as instructed until evaluated by wound care center. Follow up with Wound Care Center at [facility] at NOON on Sunday05/14/19. continue your pain management as prescribed. Prescriptions: Ciprofloxacin [Cipro 500 MG] 500 mg PO BID #14 tablet Metronidazole 500 mg [Flagyl 500 MG] 500 mg PO TID #21 tablet
[2019-05-12] MEDS ORDERED: Zofran 4 MG/2 ML VIAL IV ONE (11:18)
[2019-05-12] MEDS ORDERED: Hydromorphone 1 mg/ml Ampule IV ONE (11:21)
[2019-05-12] MEDS ORDERED: Zofran 4 MG/2 ML VIAL ONE (11:25)
[2019-05-12] MEDS ORDERED: Hydromorphone 1 mg/ml Ampule ONE (11:26)
[2019-05-12] MEDS ORDERED: Sodium Chloride 0.9% 1000 ML 1,000 ML ONE (11:26)
[2019-05-12] MEDS ORDERED: Sodium Chloride 0.9% 1000 ML 1,000 ML IV SCH (11:30)
[2019-05-12 11:47] LABS: Lactic Acid 2.2 (0.4-2.0)
[2019-05-12 11:48] LABS: BASOPHIL % 0.7 % (0.0-0.4); Basophil (Absolute #) 0.09 (0-0.4); Eosinophil % 5.8 % (0.00-5.0); Eosinophil (Absolute #) 0.71 (0-0.5); Granulocyte Absolute (ANC) 8.83 (1.4-6.9); Granulocytes % 72.5 % (36.0-66.0); Hematocrit 36.8 % (42-50); Hemoglobin 11.4 gm/dl (12.5-18.0); Lymphocyte (Absolute #) 1.47 (1.0-4.6); Lymphocytes % 12.1 % (24.0-44.0); Mean Cell Volume 84.6 fl (78-100); Mean Corpuscular Hemoglobin 26.2 pg (26-32); Mean Platelet Volume 8.1 fl (6-9.5); Monocyte (Absolute #) 1.09 (0.0-1.3); Monocytes % 8.9 % (0.0-12.0); Platelet Count 592 K/mm3 (150-450); Red Blood Count 4.35 M/mm3 (4.1-5.6); Red Cell Distribution Width 17.1 % (11.5-14.0); White Blood Count 12.2 K/mm3 (4.0-10.5)
[2019-05-12 11:57] LABS: ALKALINE PHOSPHATASE 87 U/L (38-126); BLOOD UREA NITROGEN 12 mg/dL (9-20); CHLORIDE 101 mmol/L (98-107); Calcium 10.2 mg/dL (8.4-10.2); Carbon Dioxide 28 mmol/L (22-30); Creatinine 1 0.71 mg/dL (0.66-1.25); Glucose 116 mg/dL (74-106); Potassium 3.7 mmol/L (3.5-5.1); SGOT/AST 17 U/L (17-59); SGPT/ALT 16 U/L (0-50); SODIUM 140 mmol/L (137-145); Total Protein 7.6 g/dL (6.3-8.2)
[2019-05-12] MEDS ORDERED: Unasyn 3GM / NaCl 100ML 3 GM/100 ML IVPB IV STA (12:37)
[2019-05-12 12:55] VITALS: PULSE 63
[2019-05-12 14:45] VITALS: BP 135/72; O2SAT 97
== END 2019-05-12 14:43 | disposition home or self-care (01) ==
LOC: ED 10:18
DX: T81.41XA Infection following a procedure, superficial incisional surgical site, initial encounter (principal); E11.9 Type 2 diabetes mellitus without complications; Z79.4 Long term (current) use of insulin; E78.00 Pure hypercholesterolemia, unspecified; K21.9 Gastro-esophageal reflux disease without esophagitis
CPT/HCPCS: 36415; 80053; 83605; 85025; 87040; 87070; 87077; 87186; 96360; 96365; 96374; 96375; 99284; J0295; J1170; J2405

== ENCOUNTER 2019-06-01 20:31 | Emergency (ER) | payer OTHER ==
--- NOTE | 2019-06-01 20:35 | ERPHSYRPT ---
- History of Present Illness Time Seen by Provider: 06/01/19 20:35 Source: patient, family Exam Limitations: no limitations Physician History: 49 y/o white male with chronic wound right hip region. pt has a Merritt-Kirby drain and wound vac in place. however, pts LORELEI drain accidentally pulled nearly completely out approximately one hour county historian. wound vac lost suction. pt told to come to ED for evaluation and management. Son attempted to contact wound care nurse but unable to do so again to give the ED wound care instructions. pt and son both state LORELEI drain bulb has had scant output for several days. Timing/Duration: hour(s) (1) Quality: other (no pain) Location: other (right hip) Associated Symptoms: denies symptoms Allergies/Adverse Reactions: No Known Drug Allergies Allergy (Verified 06/01/19 20:39) Home Medications: Levetiracetam [Keppra] 500 mg PO BID 07/17/17 [History] Metformin HCl 500 mg [Glucophage 500 MG] 1,000 mg PO BID 07/17/17 [History ] Dexamethasone 4 mg [Decadron 4 MG] 0.5 mg PO DAILY 12/13/17 [History] Multivitamin [Multivitamins] 1 each PO DAILY 12/13/17 [History] Aspirin EC 81 mg [Ecotrin 81 mg] 81 mg PO DAILY 05/12/19 [History] Duloxetine HCl 60 mg PO DAILY 05/12/19 [History] Omeprazole 20 mg PO DAILY 05/12/19 [History] Oxycodone HCl [Oxycontin] 30 mg PO BID 05/12/19 [History] Oxycodone HCl/Acetaminophen [Percocet 7.5-325 mg Tablet] 1 each PO Q6H 05/12/19 [History] Pregabalin [Lyrica 100Mg] 100 mg PO DAILY 05/12/19 [History] Tamsulosin HCl 0.4 mg [Flomax 0.4 MG] 0.4 mg PO BID 05/12/19 [History] Trazodone HCl 50 mg [Desyrel 50 mg] 150 mg PO DAILY 05/12/19 [History] Hx Tetanus, Diphtheria Vaccination/Date Given: Yes Hx Influenza Vaccination/Date Given: Yes Hx Pneumococcal Vaccination/Date Given: No - Review of Systems Constitutional: No Symptoms Eyes: No Symptoms Ears, Nose, & Throat: No Symptoms Respiratory: No Symptoms Cardiac: No Symptoms Abdominal/Gastrointestinal: No Symptoms Genitourinary Symptoms: No Symptoms Musculoskeletal: No Symptoms Skin: No Symptoms Neurological: No Symptoms Psychological: No Symptoms Endocrine: No Symptoms Hematologic/Lymphatic: No Symptoms Immunological/Allergic: No Symptoms All Other Systems: Reviewed and Negative - Past Medical History Pertinent Past Medical History: Yes Neurological History: Migraines, Seizures ENT History: No Pertinent History Cardiac History: High Cholesterol Respiratory History: Bronchitis Endocrine Medical History: Diabetes Type II Musculoskeletal History: No Pertinent History GI Medical History: GERD History: No Pertinent History Psycho-Social History: No Pertinent History Male Reproductive Disorders: No Pertinent History Other Medical History: Brain tumors (dx approx 4 years ago),. 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 - Past Surgical History Past Surgical History: Yes Neuro Surgical History: Neurological Surgery Cardiac: No Pertinent History Respiratory: No Pertinent History Gastrointestinal: No Pertinent History Genitourinary: No Pertinent History Musculoskeletal: No Pertinent History, Other Male Surgical History: No Pertinent History Other Surgical History: CYST REMOVED ON ELBOW. mass removed from rt hip, mesh and vishal plates to pelvis r/t tumor removal. I& D of hip - Social History Smoking Status: Current every day smoker How long have you smoked: 40 years Exposure to second hand smoke: Yes Drug Use: none Patient Lives Alone: No - Nursing Vital Signs Nursing Vital Signs: Initial Vital Signs Temperature 97.8 F 06/01/19 20:41 Pulse Rate 93 H 06/01/19 20:41 Respiratory Rate 18 06/01/19 20:41 Blood Pressure 129/88 06/01/19 20:41 O2 Sat by Pulse Oximetry 98 06/01/19 20:41 Pain Scale Pain Intensity 0 - Physical Exam General Appearance: no apparent distress, alert Eye Exam: PERRL/EOMI, eyes nml inspection Ears, Nose, Throat Exam: normal ENT inspection, moist mucous membranes Neck Exam: normal inspection, non-tender, supple Respiratory Exam: No chest tenderness Gastrointestinal/Abdomen Exam: No tenderness Rectal Exam: not done Back Exam: normal inspection, normal range of motion, No CVA tenderness, No vertebral tenderness Extremity Exam: normal inspection, normal range of motion, pelvis stable Neurologic Exam: alert, oriented x 3, cooperative, lure maker II-XII nml as tested Skin Exam: other (right inguinal wound without odor or redness. wound vac in place. lateral to this, LORELEI drain alf out and tubing completly fractured at the level of skin) Lymphatic Exam: No adenopathy SpO2 Interpretation: normal - Course Nursing assessment & vital signs reviewed: Yes - Progress Progress: improved Progress Note: 06/01/19 21:34 Miranda from wound care called back. i updated her on our findings and plan of removing LORELEI drain, replace wound vac, and vaseline gauze pressure dressing to LORELEI drain skin entrance site. she is aware. no other recommendations given Counseled pt/family regarding: diagnosis, need for follow-up - Departure Departure Disposition: Home Clinical Impression: LORELEI drain, broken, Encounter for management of wound VAC Condition: Stable Critical Care Time: No Referrals: MEGHAN PATEL [Primary Care Provider] - Additional Instructions: continue wound vac. call your wound care visiting nurse in the morning for further management
[2019-06-01 22:00] VITALS: BP 141/85; PULSE 90; O2SAT 96
== END 2019-06-01 22:00 | disposition home or self-care (01) ==
LOC: ED 20:31
DX: Z48.03 Encounter for change or removal of drains (principal); T85.698A Other mechanical complication of other specified internal prosthetic devices, implants and grafts, initial encounter; Z48.00 Encounter for change or removal of nonsurgical wound dressing
CPT/HCPCS: 99283